=== PATIENT | male | born 1990 | race Caucasian/White ===

== ENCOUNTER 2019-01-04 23:28 | Emergency (ER) | payer MEDICAID ==
[2019-01-04] MEDS ORDERED: Sodium Chloride 0.9% 1,000 ML IV ONE (23:40)
[2019-01-04] MEDS ORDERED: HYDROmorphone 1 MG/ML Syringe ONE (23:45)
[2019-01-04] MEDS ORDERED: Ondansetron 4 MG/2 ML SDV ONE (23:45)
[2019-01-04 23:58] LABS: SODIUM,NA 142 mmol/L (138-146)
[2019-01-04 23:59] LABS: ANION GAP 18.8 mmol/L (10-20); CHLORIDE,CL 107 mmol/L (98-109)
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
== END 2019-01-05 00:07 | disposition short-term general hospital (02) ==
LOC: SUPCPDRO 23:28 → VM.ED 23:28
DX: S31.131A Puncture wound of abdominal wall without foreign body, left upper quadrant without penetration into peritoneal cavity, initial encounter (principal); S31.130A Puncture wound of abdominal wall without foreign body, right upper quadrant without penetration into peritoneal cavity, initial encounter; S41.112A Laceration without foreign body of left upper arm, initial encounter; Z88.1 Allergy status to other antibiotic agents; Z91.09 Other allergy status, other than to drugs and biological substances; Y09 Assault by unspecified means
CPT/HCPCS: 36600; 71260; 74177; 80053; 82803; 83735; 85025; 86140; 96361; 96374; 96375; 99285; G0480; J1170; J2405; J7030; 99283-GF